=== PATIENT | female | born 1960 | race Caucasian/White ===

== ENCOUNTER 2025-02-26 08:37 | Emergency (ER) | payer OTHER, SELFPAY ==
--- NOTE | ~2025-02-26 | XR_ITS ---
CLINICAL HISTORY: persistent cough 2 view chest x-ray Comparison: None Findings: The lungs are clear. Normal size heart. No acute fracture. IMPRESSION: 1. No acute findings. This document has been electronically signed by: Michael York MD on 02/26/2025 09:23:37
[2025-02-26 08:40] VITALS: BP 144/84; PULSE 91; RESP 16; TEMP 36.9; O2SAT 99; BMI 24.2
--- NOTE | 2025-02-26 08:44 | ECG_ITS ---
Test Reason : cp Blood Pressure : */* mmHG Vent. Rate : 90 BPM Atrial Rate : 90 BPM P-R Int : 124 ms QRS Dur : 84 ms QT Int : 360 ms P-R-T Axes : 39 18 53 degrees QTcB Int : 440 ms Normal sinus rhythm Nonspecific ST abnormality Abnormal ECG When compared with ECG of 06-Jul-2004 10:54, Nonspecific T wave abnormality no longer evident in Inferior leads Referred By: Generic ED Physician Electronically Signed By: RICKEY NORRIS MD
[2025-02-26 09:04] LABS: MANUAL DIFF FLAG NO
[2025-02-26 09:05] LABS: Basophils Percent Auto 0.7 % (0-2); Eosinophils Absolute Auto 0.1 X10*3/uL (0.0-0.4); Eosinophils Percent Auto 0.8 % (0-4); Hematocrit 34.2 % (37.0-47.0); Hemoglobin 11.8 g/dl (12.0-16.0); Imm Gran Abs Auto 0.03 X10*3/uL (0.00-0.03); Imm Gran Pct Auto 0.5 % (0.0-0.4); Lymphocytes Absolute Auto 1.7 X10*3/uL (1.2-4.9); Lymphocytes Percent Auto 28.5 % (20-40); Mean Corpuscular HGB Conc 34.5 g/dl (31.0-35.0); Mean Corpuscular Hemoglobin 31.9 pg (27.0-33.0); Mean Corpuscular Volume 92.4 fL (80.0-98.0); Mean Platelet Volume 8.2 fL (9.4-12.3); Monocytes Absolute Auto 0.5 X10*3/uL (0.1-1.2); Monocytes Percent Auto 7.7 % (2-11); Neutrophils Absolute Auto 3.7 x10*3/uL (2.0-8.3); Neutrophils Percent Auto 61.8 % (45-73); Platelet Count 293 X10*3/uL (160-400); Red Cell Distribution Width 12.6 % (11.0-16.0)
[2025-02-26 09:21] LABS: Anion Gap 14 (12-20); Blood Urea Nitrogen 12 mg/dL (9-16); Calcium 8.9 mg/dL (8.4-10.2); Carbon Dioxide 24 mmol/L (22-29); Chloride 109 mmol/L (96-108); Creatinine Clr Calc Pharmacy 71.1; Estimated Glomerular Filt Rate > 60; Glucose Random 94 mg/dL (60-115); Potassium 3.8 mmol/L (3.3-5.1); Sodium 143 mmol/L (135-145)
[2025-02-26 09:35] LABS: Troponin-I High Sensitivity < 2.7 ng/L (<3.5-17.0)
--- NOTE | 2025-02-26 09:42 | ED_ITS ---
HPI - URI/Sore Throat General Chief Complaint: Upper Respiratory Symptoms Stated Complaint: cough Time Seen by Provider: 02/26/25 09:04 Source: patient, RN notes reviewed and old records reviewed Mode of arrival: ambulatory History of Present Illness ED Provider: Crystal Verdin PA-C HPI Narrative: 64-year-old female no significant past medical history presenting to the ED complaining of persistent cough x3 weeks. States cough is minimally productive with associated chest discomfort when coughing. Admits was seen at urgent care a few weeks ago, Rx Z-Dexter with some relief however symptoms never fully resolved. Denies fever, chills, recent travel, sick contacts, pedal edema, SOB Related Data Previous Rx's ?Medication ?Instructions ?Recorded benzonatate 100 mg capsule 100 mg PO TID PRN cough #14 caps 02/26/25 hydrocodone-homatropine 5 mg-1.5 5 ml PO Q6H PRN cough #50 mL 02/26/25 mg/5 mL (5 mL) oral solution (Hycodan) prednisone 20 mg tablet 40 mg (2 x 20 mg) PO DAILY 5 days 02/26/25 #10 tabs Allergies Allergy/AdvReac Type Severity Reaction Status Date / Time Sulfa (Sulfonamide Allergy Unknown RASH Verified 02/26/25 08:41 Antibiotics) [SULFA (SULFONAMIDE ANTIBIOTICS)] sulfa related meds Allergy Unknown facial Uncoded 08/29/21 11:18 swelling, redness Review of Systems 2 Review of Systems: Yes all other systems are reviewed and are negative Constitutional: Constitutional: Reports as per [facility] Past Medical History Attestation statement: The following information was validated with the patient. Source: old records reviewed Social History Social History Smoked in Last 30 Days: No Use of substances other than those prescribed or required for medical reasons: No Advance Directives: No Advance Directives Information Provided: Yes Patient : No Physical Exam 2 Vital Signs: Vital Signs: Last Vital Signs Temp 98.5 F 02/26/25 11:06 Pulse 83 02/26/25 11:06 Resp 18 02/26/25 11:06 BP 125/74 02/26/25 11:06 Pulse Ox 95 02/26/25 11:06 O2 Del Method Room Air 02/26/25 11:06 BMI result Body Mass Index 24.2 Const: General: cooperative, healthy appearing and no acute distress O rientation/consciousness: patient oriented x3 Limitations: no limitations HEENT: Head: Yes normal to inspection and Yes atraumatic Ears: hearing grossly normal bilaterally General nose exam: Normal external nose present Face and sinus: Yes normal facial exam Mouth: Normal oral and palatal mucosa present and no drooling Throat: Yes posterior oropharynx normal, Yes tonsils normal, Yes uvula midline and No peritonsillar mass Eyes: General: appearance normal, both eyes and all related structures EOM: EOMs intact bilaterally Neck: Neck: Yes normal visual inspection and Yes no meningeal signs Resp: Effort & Inspection: normal respiratory effort, not labored and no respiratory distress Auscultation: clear to auscultation bilaterally, no crackles, no rales, no rhonchi and no wheezes Cardio: Rate: regular rate Heart sounds: S1 normal heart sound present and S2 normal heart sound present GI: Inspection: Yes normal to inspection Palpation (GI): Soft to palpation, nontender, no guarding and not rigid Skin: Rashes: no rashes Wounds: no wounds Neuro: General: patient oriented x3, tone normal and no meningeal signs C ranial nerves: Yes CN's II-XII intact bilaterally Gait exam (Neuro): Normal gait present Extrem: General: Yes normal to inspection Course Course Course Narrative: 1019-- labs reassuring. Troponin negative. COVID/flu /RSV negative - chest x-ray unremarkable > patient is supplied with inhaler in the ED Results discussed with patient including worrisome signs and symptoms and strict return precautions, and when to return to the emergency department. They verbalized understanding and feel safe for discharge at this time. Medications Administered Discontinued Medications Generic Name Dose Route Start Last Admin Trade Name Freq PRN Reason Stop Dose Admin Albuterol Sulfate 2 puff 02/26/25 09:32 02/26/25 10:24 Albuterol Sulfate 90 Mcg 8 Gm Inhaler INHALE 02/26/25 09:33 2 puff ONCE ONE Administration Benzonatate 100 mg 02/26/25 09:32 02/26/25 10:14 Benzonatate 100 Mg Capsule PO 02/26/25 09:33 100 mg ONCE ONE Administration Medical Decision Making Medical Decision Making [facility] Narrative: 64-year-old female no significant past medical history presenting to the ED complaining of persistent cough x3 weeks. States cough is minimally productive with associated chest discomfort when coughing. on exam vital signs stable, NAD, nontoxic appearing, talking in complete sentences, lungs CTA, no respiratory distress. Concern for viral illness vs pneumonia vs bronchitis. Lower suspicion for ACS, dissection, CHF plan: EKG, labs, CXR, viral testing, Tessalon Perles, albuterol inhaler, re- evaluate Please refer to course for remaining clinical decision making, interpretation of labs/imaging results, and discussions with consultants and/or family members. Differential Diagnosis Differential Diagnoses: The differential diagnosis associated with the presentation includes As above Admission/Observation Consideration of admission/observation: Escalation of care including admission/observation considered Lab Data MDM Lab Attestation statement: I reviewed the patient's lab results. 02/26/25 08:58 02/26/25 08:58 Labs: Lab Results 02/26/25 Range/Units 08:58 WBC 6.0 (4.8-10.8) X10*3/uL RBC 3.70 L (4.20-5.50) X10*6/uL Hgb 11.8 L (12.0-16.0) g/dl Hct 34.2 L (37.0-47.0) % MCV 92.4 (80.0-98.0) fL MCH 31.9 (27.0-33.0) pg MCHC 34.5 (31.0-35.0) g/dl RDW 12.6 (11.0-16.0) % Plt Count 293 (160-400) X10*3/uL MPV 8.2 L (9.4-12.3) fL Immature Gran % (Auto) 0.5 H (0.0-0.4) % Neut % (Auto) 61.8 (45-73) % Lymph % (Auto) 28.5 (20-40) % [place] % (Auto) 7.7 (2-11) % Eos % (Auto) 0.8 (0-4) % Baso % (Auto) 0.7 (0-2) % Lymph # (Auto) 1.7 (1.2-4.9) X10*3/uL [place] # (Auto) 0.5 (0.1-1.2) X10*3/uL Eos # (Auto) 0.1 (0.0-0.4) X10*3/uL Baso # (Auto) 0.0 (0.0-0.2) X10*3/uL Abs Immat Gran (auto) 0.03 (0.00-0.03) X10*3/uL Absolute Neuts (auto) 3.7 (2.0-8.3) x10*3/uL Absolute Nucleated RBC 0.000 (0.0-0.012) X10*3/uL Nucleated RBC % (auto) 0.0 (0.0-0.2) /100WBC Sodium 143 (135-145) mmol/L Potassium 3.8 (3.3-5.1) mmol/L Chloride 109 H (96-108) mmol/L Carbon Dioxide 24 (22-29) mmol/L Anion Gap 14 (12-20) BUN 12 (9-16) mg/dL Creatinine 0.64 (0.5-1.4) mg/dL Estim Creat Clear Calc 71.1 Estimated GFR > 60 Random Glucose 94 (60-115) mg/dL Calcium 8.9 (8.4-10.2) mg/dL Troponin I High Sens < 2.7 (<3.5-17.0) ng/L Influenza Type A (PCR) NEGATIVE (Negative) Influenza Type B (PCR) NEGATIVE (Negative) RSV RNA Qual (PCR) NEGATIVE (Negative) SARS-CoV-2 RNA (RT-PCR) NEGATIVE (Negative) Independent Interpretation I performed an independent interpretation of an: EKG ( my interpretation EKG normal sinus rhythm rate of 90. [place] interval 124. QTC 440. No STEMI. Nonspecific T-wave abnormality no longer evident when compared to prior) and Plain X-Ray Radiology Impression Discussion of test interpretation with radiology: I have reviewed the radiologist's reading. External Record Review External record reviewed: Inpatient record, Office record, Outpatient record, Prior outpatient labs, Prior outpatient radiology, Primary care record and Outside ED record Tests considered The following testing was considered but not selected: As above Prescription Management I considered prescription management with: Pain Medication and Antibiotic Chronic Conditions Patient?s care impacted by: Other Social Determinants Patient?s care significantly limited by Social Determinants of Health including: Other Social Determinant of Health Discharge Plan Discharge Clinical Impression: Bronchitis Patient Disposition: Home, Self-Care Instructions: Acute Bronchitis (ED) Additional Instructions: your blood work and x-ray are reassuring you tested negative for COVID, flu, RSV You do not have pneumonia, you have bronchitis Prednisone as a steroid, please take as prescribed until completion In addition use albuterol inhaler at home as needed for shortness of breath/ wheezing Tessalon Perles for cough Hycodan as a cough syrup with codeine, do not drive/ drink alcohol or operate anything while taking If her symptoms persist or worsen, you have constant worsening chest pain /shortness of breath return to the ED Prescriptions: New prednisone 20 mg tablet 40 mg PO DAILY 5 Days Qty: 10 0RF benzonatate 100 mg capsule 100 mg PO TID PRN (Reason: cough) Qty: 14 0RF hydrocodone-homatropine [Hycodan] 5-1.5 mg/5 mL (5 mL) solution 5 ml PO Q6H PRN (Reason: cough) Qty: 50 0RF Rx Instructions: Partial Fill upon patient request. Referrals: Nelson Chiang MD [Primary Care Provider] - 1 week Interventions: ED Discharge Assessment Last Done: 02/26/25 11:06 Discharge Date/Time: 02/26/25 11:09 Print Language: Russian
[2025-02-26 09:58] LABS: Influenza A PCR NEGATIVE (Negative); Influenza B PCR NEGATIVE (Negative); Resp Syncy Virus RNA Qual PCR NEGATIVE (Negative); SARS COV2 PCR INHOUSE NEGATIVE (Negative)
[2025-02-26 10:00] VITALS: BP 152/84; PULSE 89; RESP 20; O2SAT 100
[2025-02-26] MEDS: Benzonatate 100 MG CAPSULE PO (10:14)
[2025-02-26] MEDS: Albuterol Sulfate 90 MCG 8 GM INHALER 2 PUFF INHALE (10:24)
[2025-02-26 10:25] VITALS: PULSE 83; RESP 18; O2SAT 99
[2025-02-26 11:06] VITALS: BP 125/74; PULSE 83; RESP 18; TEMP 36.9; O2SAT 95
--- NOTE | 2025-02-26 11:08 | PC.NURSE ---
Pt. given dc instructions and educated on new medication at this time. All questions answered.
== END 2025-02-26 11:09 | disposition home or self-care (01) ==
PROVIDERS: Emergency Provider Emergency Medicine; PCP Internal Medicine
DX: J40 Bronchitis, not specified as acute or chronic (principal); R05.9 Cough, unspecified; Z03.818 Encounter for observation for suspected exposure to other biological agents ruled out
CPT/HCPCS: 0241U; 71046; 80048; 84484; 85025; 93005; 94640; 99284; 99285

== ENCOUNTER → 2025-02-26 08:44 | Outpatient (BNV) | payer OTHER, SELFPAY | PROVIDERS: Emergency Provider Emergency Medicine; PCP Internal Medicine; Visit Provider Specialist | DX: R05.2 Subacute cough (principal) | CPT/HCPCS: 71046 ==

== ENCOUNTER → 2025-02-26 08:44 | Outpatient (BNV) | payer OTHER, SELFPAY | PROVIDERS: Emergency Provider Emergency Medicine; PCP Internal Medicine; Visit Provider Internal Medicine Cardiovascular Disease | DX: R94.31 Abnormal electrocardiogram [ECG] [EKG] (principal); R07.9 Chest pain, unspecified | CPT/HCPCS: 93010 ==